=== PATIENT | female | born 1975 | race Caucasian/White ===

== ENCOUNTER 2016-07-10 20:21 | Emergency (ER) | payer BC ==
[2016-07-10] MEDS ORDERED: Promethazine HCl 25 MG/ML VIAL ONE (21:08)
[2016-07-10] MEDS ORDERED: diphenhydrAMINE HCl 25 MG CAP ONE (21:10)
== END 2016-07-10 22:05 | disposition home or self-care (01) ==
LOC: MADERS 20:21
DX: G43.909 Migraine, unspecified, not intractable, without status migrainosus (principal); G47.00 Insomnia, unspecified; F41.9 Anxiety disorder, unspecified; F32.9 Major depressive disorder, single episode, unspecified
CPT/HCPCS: 96372; J2270; J2550

== ENCOUNTER 2016-08-14 20:18 | Emergency (ER) | payer BC, SELFPAY ==
[~2016-08-14 20:18] MED LIST: Sodium Chloride 0.9% 1,000 ML BAG ONE
[2016-08-14] MEDS ORDERED: methylPREDNISolone Sod Succ/PF 125 MG/2 ML VIAL ONE (20:51)
[2016-08-14] MEDS ORDERED: diphenhydrAMINE HCl 50 MG/ML 1 ML VIAL ONE (20:51)
[2016-08-14] MEDS ORDERED: Metoclopramide HCl 10 MG/2 ML VIAL ONE (20:51)
[2016-08-14] MEDS ORDERED: Magnesium Sulfate 2 GM/NS 0.9% 50 ML BAG ONE (21:59)
[2016-08-14] MEDS ORDERED: Valproate Sodium 500 MG/5 ML VIAL ONE (22:38)
[2016-08-15] MEDS ORDERED: SODIUM CHLORIDE 0.9% IVPB SCH (01:00)
[2016-08-15] MEDS ORDERED: VALPROATE SODIUM IVPB SCH (01:00)
== END 2016-08-14 23:43 | disposition home or self-care (01) ==
LOC: MADERS 20:18
DX: G43.909 Migraine, unspecified, not intractable, without status migrainosus (principal); F41.9 Anxiety disorder, unspecified; F32.9 Major depressive disorder, single episode, unspecified; Z79.899 Other long term (current) drug therapy
CPT/HCPCS: 96361; 96365; 96367; 96375; J1200; J2765; J2930; J3475; J7050

== ENCOUNTER 2016-12-22 21:29 | Emergency (ER) | payer SELFPAY ==
[2016-12-22] MEDS ORDERED: Ondansetron HCl/PF 4 MG/2 ML Vial ONE (22:00)
[2016-12-22] MEDS ORDERED: Metoclopramide HCl 10 MG TAB ONE (22:00)
[2016-12-22] MEDS ORDERED: Metoclopramide HCl 10 MG/2 ML VIAL ONE ×2 (22:00→22:12)
[2016-12-22] MEDS ORDERED: diphenhydrAMINE HCl 50 MG/ML 1 ML VIAL ONE (22:00)
[2016-12-22] MEDS ORDERED: Ketorolac Tromethamine 30 MG/ML VIAL ONE (22:00)
[2016-12-22] MEDS ORDERED: HYDROcodone/Acetaminophen 10/325 mg Tablet ONE (22:54)
== END 2016-12-22 23:00 | disposition home or self-care (01) ==
LOC: MADERS 21:29
DX: G43.909 Migraine, unspecified, not intractable, without status migrainosus (principal); F41.0 Panic disorder [episodic paroxysmal anxiety]; F32.9 Major depressive disorder, single episode, unspecified
CPT/HCPCS: 96361; 96374; 96375; J1200; J1885; J2405; J2765; J7050

== ENCOUNTER 2017-01-20 18:16 | Emergency (ER) | payer SELFPAY ==
[2017-01-20] MEDS ORDERED: Naproxen 500 MG TAB ONE (19:34)
[2017-01-20] MEDS ORDERED: Diazepam 5 MG TAB ONE (19:34)
[2017-01-20] MEDS ORDERED: HYDROcodone/Acetaminophen 10/325 mg Tablet ONE (19:34)
== END 2017-01-20 19:42 | disposition home or self-care (01) ==
LOC: MADERS 18:16
DX: M54.5 Low back pain (principal); F32.9 Major depressive disorder, single episode, unspecified; F41.9 Anxiety disorder, unspecified
CPT/HCPCS: 99283

== ENCOUNTER 2017-03-04 18:19 | Emergency (ER) | payer SELFPAY ==
[2017-03-04] MEDS ORDERED: HYDROcodone/Acetaminophen 10/325 mg Tablet ONE (19:49)
[2017-03-04] MEDS ORDERED: Diazepam 5 MG TAB ONE (19:50)
[2017-03-04] MEDS ORDERED: Naproxen 500 MG TAB ONE (19:50)
[2017-03-04] MEDS ORDERED: Ondansetron ODT 4 MG TAB ONE (19:50)
--- NOTE | 2017-03-04 23:17 | CT ---
LUMBAR SPINE CT SCAN WITHOUT IV CONTRAST: 03/04/17 HISTORY: 41-year-old female with low back pain mostly right sided and right leg pain. Small right paracentral disc osteophyte at T11-T12 without significant canal stenosis, although ther e does appear to be minimal indention of the ventral thecal sac. Very minute disc osteophytic at T12 -L1. Minute disc osteophyte at L1-L2. Very mild bulging and ligament and facet hypertrophic changes at L2-L3 without significant central c anal or foraminal stenosis. At L3-L4, there is some mild disc bulging with very slight thinning of the lateral recesses without significant associated stenosis. At L4-L5, there is some diffuse disc bulging with moderate central canal and lateral recess stenosis and moderate to severe right foraminal stenosis. Unremarkable L5-S1. IMPRESSION: Disc bulging and ligament and facet hypertrophic changes resulting in central canal, right lateral r ecess, and right foraminal stenosis at L4-L5. Some minute multilevel disc osteophytic changes. At T11-T12, there is a focal right paracentral protrusion with mild indention of the right sided darling tral thecal sac. Followup nonemergent MRI study is suggested for more complete evaluation. POS: ADA
== END 2017-03-04 21:05 | disposition home or self-care (01) ==
LOC: MADERS 18:19
DX: M51.26 Other intervertebral disc displacement, lumbar region (principal); M54.41 Lumbago with sciatica, right side; F32.9 Major depressive disorder, single episode, unspecified; F41.0 Panic disorder [episodic paroxysmal anxiety]; Z79.891 Long term (current) use of opiate analgesic; Z79.899 Other long term (current) drug therapy
CPT/HCPCS: 72131; Q0162

== ENCOUNTER 2017-05-25 19:30 | Emergency (ER) | payer OTHER, SELFPAY ==
[2017-05-25] MEDS ORDERED: Ketorolac Tromethamine 30 MG/ML VIAL ONE (20:08)
[2017-05-25] MEDS ORDERED: Ondansetron ODT 4 MG TAB ONE (20:08)
[2017-05-25] MEDS ORDERED: HYDROcodone/Acetaminophen 10/325 mg Tablet ONE (20:08)
== END 2017-05-25 20:34 | disposition home or self-care (01) ==
LOC: MADERS 19:30
DX: M51.16 Intervertebral disc disorders with radiculopathy, lumbar region (principal); G47.00 Insomnia, unspecified; G43.909 Migraine, unspecified, not intractable, without status migrainosus; F41.0 Panic disorder [episodic paroxysmal anxiety]; Z79.899 Other long term (current) drug therapy
CPT/HCPCS: 96372; J1885; Q0162

== ENCOUNTER 2017-06-21 16:08 | Emergency (ER) | payer OTHER ==
[2017-06-21] MEDS ORDERED: Cephalexin 500 MG CAP ONE (18:26)
[2017-06-21] MEDS ORDERED: predniSONE 20 MG TAB ONE (18:26)
== END 2017-06-21 18:40 | disposition home or self-care (01) ==
LOC: MADERS 16:08
DX: S70.261A Insect bite (nonvenomous), right hip, initial encounter (principal); L03.319 Cellulitis of trunk, unspecified; G43.909 Migraine, unspecified, not intractable, without status migrainosus; G47.00 Insomnia, unspecified; F41.9 Anxiety disorder, unspecified; F32.9 Major depressive disorder, single episode, unspecified; Z79.899 Other long term (current) drug therapy; W57.XXXA Bitten or stung by nonvenomous insect and other nonvenomous arthropods, initial encounter
CPT/HCPCS: 99282; J7506

== ENCOUNTER 2017-09-23 12:10 | Emergency (ER) | payer OTHER ==
[2017-09-23] MEDS ORDERED: Cyclobenzaprine 10 MG TAB ONE (12:51)
[2017-09-23] MEDS ORDERED: Ketorolac Tromethamine 60 MG/2 ML VIAL ONE (12:51)
== END 2017-09-23 13:13 | disposition home or self-care (01) ==
LOC: MADERS 12:10
DX: G89.29 Other chronic pain (principal); M54.5 Low back pain; G47.00 Insomnia, unspecified; F41.9 Anxiety disorder, unspecified; F32.9 Major depressive disorder, single episode, unspecified; G43.909 Migraine, unspecified, not intractable, without status migrainosus; Z79.899 Other long term (current) drug therapy
CPT/HCPCS: 96372; J1885

== ENCOUNTER 2017-11-14 17:55 | Emergency (ER) | payer OTHER ==
[2017-11-14] MEDS ORDERED: Ketorolac Tromethamine 30 MG/ML VIAL ONE (18:17)
[2017-11-14] MEDS ORDERED: Metoclopramide HCl 10 MG/2 ML VIAL ONE (18:17)
[2017-11-14] MEDS ORDERED: diphenhydrAMINE 50 MG/ML VIAL ONE (18:17)
[2017-11-14] MEDS ORDERED: Acetaminophen 500 MG TAB ONE (19:19)
[2017-11-14] MEDS ORDERED: Magnesium Sulfate 2 GM/NS 0.9% 50 ML BAG ONE (19:19)
== END 2017-11-14 20:24 | disposition home or self-care (01) ==
LOC: MADERS 17:55
DX: G43.909 Migraine, unspecified, not intractable, without status migrainosus (principal); G89.29 Other chronic pain; M54.9 Dorsalgia, unspecified; F41.9 Anxiety disorder, unspecified; F32.9 Major depressive disorder, single episode, unspecified; Z79.899 Other long term (current) drug therapy
CPT/HCPCS: 96361; 96365; 96375; J1200; J1885; J2765; J3475; J7050

== ENCOUNTER 2018-01-13 18:03 | Emergency (ER) | payer OTHER ==
[~2018-01-13 18:03] MED LIST changes: -Sodium Chloride 0.9% 1,000 ML BAG ONE; +Sodium Chloride 0.9% 500 ML BAG ONE
[2018-01-13] MEDS ORDERED: Ketorolac Tromethamine 30 MG/ML VIAL ONE (18:32)
[2018-01-13] MEDS ORDERED: Metoclopramide HCl 10 MG TAB ONE (18:32)
[2018-01-13] MEDS ORDERED: Dexamethasone 10 MG/ML VIAL ONE (18:32)
[2018-01-13] MEDS ORDERED: Promethazine HCl 25 MG/ML VIAL ONE (18:32)
[2018-01-13] MEDS ORDERED: diphenhydrAMINE 50 MG/ML VIAL ONE (18:32)
[2018-01-13] MEDS ORDERED: Metoclopramide HCl 10 MG/2 ML VIAL ONE (18:32)
== END 2018-01-13 19:20 | disposition home or self-care (01) ==
LOC: MADERS 18:03
DX: G43.909 Migraine, unspecified, not intractable, without status migrainosus (principal); F41.9 Anxiety disorder, unspecified; F32.9 Major depressive disorder, single episode, unspecified; Z79.899 Other long term (current) drug therapy
CPT/HCPCS: 96365; 96375; J1100; J1200; J1885; J2550; J2765; J7050

== ENCOUNTER 2018-01-16 09:58 | Emergency (ER) | payer OTHER ==
--- NOTE | 2018-01-16 11:25 | RAD ---
LUMBAR SPINE THREE VIEWS: HISTORY: Trauma. Fell in the shower. Low back pain. FINDINGS: No fracture or subluxation is identified. Mild degenerative changes are present. POS: ADA
== END 2018-01-16 11:36 | disposition home or self-care (01) ==
LOC: MADERS 09:58
DX: M54.5 Low back pain (principal); G47.00 Insomnia, unspecified; F41.9 Anxiety disorder, unspecified; F32.9 Major depressive disorder, single episode, unspecified; Z79.899 Other long term (current) drug therapy
CPT/HCPCS: 72100

== ENCOUNTER 2018-02-12 23:35 | Emergency (ER) | payer OTHER ==
[~2018-02-12 23:35] MED LIST changes: +Sodium Chloride 0.9% 1,000 ML BAG ONE; -Sodium Chloride 0.9% 500 ML BAG ONE
[2018-02-13] MEDS ORDERED: SUMAtriptan Succinate 6 MG/0.5 ML VIAL ONE (00:01)
[2018-02-13] MEDS ORDERED: Promethazine HCl 25 MG/ML VIAL ONE (00:01)
[2018-02-13] MEDS ORDERED: Ketorolac Tromethamine 30 MG/ML VIAL ONE (00:01)
== END 2018-02-13 02:05 | disposition home or self-care (01) ==
LOC: MADERS 23:35
DX: G43.909 Migraine, unspecified, not intractable, without status migrainosus (principal); F41.9 Anxiety disorder, unspecified; F32.9 Major depressive disorder, single episode, unspecified; Z79.899 Other long term (current) drug therapy
CPT/HCPCS: 96361; 96372; 96374; 96375; J1885; J2550; J3030; J7050

== ENCOUNTER 2018-02-14 13:17 | Emergency (ER) | payer OTHER ==
[2018-02-14] MEDS ORDERED: diphenhydrAMINE 50 MG/ML VIAL ONE (13:55)
[2018-02-14] MEDS ORDERED: Metoclopramide HCl 10 MG/2 ML VIAL ONE (13:55)
[2018-02-14] MEDS ORDERED: Ketorolac Tromethamine 30 MG/ML VIAL ONE (13:55)
[2018-02-14 14:37] LABS: #Basophils 0.1 thou/uL (0.0-0.2); #Eosinphils 0.2 thou/uL (0.0-0.7); #Monocytes 0.8 thou/uL (0.11-0.59); #Neutrophils 8.7 thou/uL (1.40-6.50); %Basophils 0.8 % (0.0-1.0); %Eosinophils 1.8 % (0.0-10.0); %Lymphocytes 16.7 % (21.0-51.0); %Monocytes 6.4 % (0.0-10.0); %Neutrophils 74.3 % (42.0-75.0); Hemoglobin 13.1 g/dL (12.0-16.0); Mean Corpuscular HGB CONC 33.8 g/dL (32.0-36.0); Mean Corpuscular Hemoglobin 31.7 pg (27.0-31.0); Mean Corpuscular Volume 93.7 fL (78.0-98.0); Mean Platelet Volume 8.1 fL (7.4-10.4); Platelet Count 282 thou/uL (130-400); RBC Distribution Width 12.5 % (11.5-14.5); Red Blood Cell (RBC) Count 4.14 mill/uL (4.20-5.40); White Blood Cell (WBC) Count 11.7 thou/uL (4.8-10.8)
[2018-02-14 14:45] LABS: Prothrombin Time 12.8 SEC (12.0-14.7)
[2018-02-14 14:51] LABS: ALT (SGPT) 31 U/L (8-55); AST (SGOT) 20 U/L (5-34); Albumin 4.2 g/dL (3.5-5.0); Alkaline Phosphatase 83 U/L (40-150); Anion Gap 14 mmol/L (10-20); BUN (Urea Nitrogen) 5 mg/dL (7.0-18.7); Bilirubin, Total 0.8 mg/dL (0.2-1.2); Calc. Creatinine Clearance 0 mL/min (70-130); Calcium 8.8 mg/dL (7.8-10.44); Carbon Dioxide 23 mmol/L (22-29); Chloride 108 mmol/L (98-107); Estimated GFR-MDRD 82; Glucose 108 mg/dL (70-105); Potassium 3.5 mmol/L (3.5-5.1); Protein, Total 7.2 g/dL (6.0-8.3); Sodium 141 mmol/L (136-145)
[2018-02-14] MEDS ORDERED: SUMAtriptan Succinate 6 MG/0.5 ML VIAL ONE (15:01)
== END 2018-02-14 15:34 | disposition home or self-care (01) ==
LOC: MADERS 13:17
DX: G43.909 Migraine, unspecified, not intractable, without status migrainosus (principal); G47.00 Insomnia, unspecified; F32.9 Major depressive disorder, single episode, unspecified; F41.0 Panic disorder [episodic paroxysmal anxiety]; Z79.891 Long term (current) use of opiate analgesic; Z79.899 Other long term (current) drug therapy
CPT/HCPCS: 36415; 80053; 85025; 85610; 96372; 96374; 96375; J1200; J1885; J2765; J3030

== ENCOUNTER 2018-02-17 18:10 | Emergency (ER) | payer OTHER ==
[2018-02-17] MEDS ORDERED: Prochlorperazine 10 MG/2 ML VIAL ONE (18:39)
[2018-02-17] MEDS ORDERED: Haloperidol Lactate 5 MG/ML VIAL ONE (18:39)
[2018-02-17 19:05] LABS: #Basophils 0.1 thou/uL (0.0-0.2); #Eosinphils 0.2 thou/uL (0.0-0.7); #Lymphocytes 2.4 thou/uL (1.20-3.40); #Monocytes 0.9 thou/uL (0.11-0.59); #Neutrophils 8.8 thou/uL (1.40-6.50); %Basophils 0.6 % (0.0-1.0); %Eosinophils 1.8 % (0.0-10.0); %Lymphocytes 19.5 % (21.0-51.0); %Monocytes 6.9 % (0.0-10.0); %Neutrophils 71.2 % (42.0-75.0); Hemoglobin 12.1 g/dL (12.0-16.0); Mean Corpuscular HGB CONC 33.4 g/dL (32.0-36.0); Mean Corpuscular Hemoglobin 31.1 pg (27.0-31.0); Mean Platelet Volume 9.1 fL (7.4-10.4); Platelet Count 263 thou/uL (130-400); RBC Distribution Width 12.5 % (11.5-14.5); White Blood Cell (WBC) Count 12.3 thou/uL (4.8-10.8)
[2018-02-17 19:12] LABS: INR-International Normal Ratio 0.9; Prothrombin Time 12.1 SEC (12.0-14.7)
[2018-02-17 19:20] LABS: ALT (SGPT) 24 U/L (8-55); AST (SGOT) 18 U/L (5-34); Albumin 4.5 g/dL (3.5-5.0); Alkaline Phosphatase 84 U/L (40-150); Anion Gap 12 mmol/L (10-20); BUN (Urea Nitrogen) 9 mg/dL (7.0-18.7); Bilirubin, Total 0.6 mg/dL (0.2-1.2); Calc. Creatinine Clearance 0 mL/min (70-130); Calcium 9.4 mg/dL (7.8-10.44); Carbon Dioxide 25 mmol/L (22-29); Chloride 108 mmol/L (98-107); Estimated GFR-MDRD 66; Globulin 3.1 g/dL (2.4-3.5); Glucose 94 mg/dL (70-105); Potassium 3.9 mmol/L (3.5-5.1); Protein, Total 7.6 g/dL (6.0-8.3); Sodium 141 mmol/L (136-145)
--- NOTE | 2018-02-17 20:12 | CT ---
CT BRAIN 02/17/18 HISTORY: 42-year-old with five day history of headache. Noncontrast enhanced CT images of the brain is obtained from base of the skull through the vertex. Br ain and bone windows obtained. The calvarium is unremarkable. No evidence of acute intracranial masses, hemorrhages, strokes or cont usions seen. Ventricles are of normal size. IMPRESSION: Normal CT brain. POS: BATSHEVA
== END 2018-02-17 20:09 | disposition home or self-care (01) ==
LOC: MADERS 18:10
DX: G43.909 Migraine, unspecified, not intractable, without status migrainosus (principal); F32.9 Major depressive disorder, single episode, unspecified; F41.0 Panic disorder [episodic paroxysmal anxiety]; G47.00 Insomnia, unspecified; Z79.899 Other long term (current) drug therapy
CPT/HCPCS: 70450; 80053; 85025; 85610; 96374; 96375; J0780; J1630

== ENCOUNTER 2018-02-26 08:37 | Emergency (ER) | payer OTHER ==
[2018-02-26] MEDS ORDERED: Ibuprofen 800 MG TAB ONE (08:53)
--- NOTE | 2018-02-26 09:29 | RAD ---
LEFT FOOT THREE VIEWS: History: Fall with foot pain. FINDINGS: There is a Taylor type fracture of the base of the fifth metatarsal. No other findings. IMPRESSION: Taylor fracture base of fifth metatarsal. POS: ADA
== END 2018-02-26 09:20 | disposition home or self-care (01) ==
LOC: MADERS 08:37
DX: S92.355A Nondisplaced fracture of fifth metatarsal bone, left foot, initial encounter for closed fracture (principal); G47.00 Insomnia, unspecified; G43.909 Migraine, unspecified, not intractable, without status migrainosus; F41.9 Anxiety disorder, unspecified; F32.9 Major depressive disorder, single episode, unspecified; Z79.899 Other long term (current) drug therapy; W01.0XXA Fall on same level from slipping, tripping and stumbling without subsequent striking against object, initial encounter
CPT/HCPCS: 29515

== ENCOUNTER 2018-02-26 23:28 | Emergency (ER) | payer OTHER ==
[2018-02-27] MEDS ORDERED: traMADol HCl 50 MG TAB ONE (00:01)
== END 2018-02-27 00:08 | disposition home or self-care (01) ==
LOC: MADERS 23:28
DX: S92.352A Displaced fracture of fifth metatarsal bone, left foot, initial encounter for closed fracture (principal); G47.00 Insomnia, unspecified; G43.909 Migraine, unspecified, not intractable, without status migrainosus; F31.9 Bipolar disorder, unspecified; F41.0 Panic disorder [episodic paroxysmal anxiety]
CPT/HCPCS: 99283

== ENCOUNTER 2018-05-01 05:23 | Emergency (ER) | payer OTHER ==
[2018-05-01] MEDS ORDERED: Lorazepam 1 MG TAB ONE (06:25)
== END 2018-05-01 06:28 | disposition home or self-care (01) ==
LOC: MADERS 05:23
DX: F41.1 Generalized anxiety disorder (principal); G43.909 Migraine, unspecified, not intractable, without status migrainosus; G47.00 Insomnia, unspecified; F32.9 Major depressive disorder, single episode, unspecified; E78.5 Hyperlipidemia, unspecified
CPT/HCPCS: 93005

== ENCOUNTER 2018-08-12 08:42 | Emergency (ER) | payer OTHER ==
[2018-08-12] MEDS ORDERED: Ibuprofen 800 MG TAB ONE (09:27)
== END 2018-08-12 10:00 | disposition home or self-care (01) ==
LOC: MADERS 08:42
DX: B34.9 Viral infection, unspecified (principal); G47.00 Insomnia, unspecified; G43.909 Migraine, unspecified, not intractable, without status migrainosus; F41.9 Anxiety disorder, unspecified; F32.9 Major depressive disorder, single episode, unspecified; Z79.899 Other long term (current) drug therapy
CPT/HCPCS: 87081; 87430; 87804; 99283

== ENCOUNTER 2018-08-14 12:12 | Emergency (ER) | payer OTHER ==
[2018-08-14] MEDS ORDERED: Oseltamivir 75 MG CAP ONE (13:59)
--- NOTE | 2018-08-14 14:18 | RAD ---
PA AND LATERAL CHEST: Date: 08/14/18 HISTORY: Cough and congestion. FINDINGS: Heart size is borderline to minimally enlarged. Mediastinal structures are unremarkable. The lungs ar e clear of infiltrates. There are no signs of failure. IMPRESSION: Borderline heart size. POS: TPC
== END 2018-08-14 14:35 | disposition home or self-care (01) ==
LOC: MADERS 12:12
DX: J11.1 Influenza due to unidentified influenza virus with other respiratory manifestations (principal); G47.00 Insomnia, unspecified; G43.909 Migraine, unspecified, not intractable, without status migrainosus; F41.0 Panic disorder [episodic paroxysmal anxiety]; F32.9 Major depressive disorder, single episode, unspecified; Z79.899 Other long term (current) drug therapy
CPT/HCPCS: 71046; 87081; 87430

== ENCOUNTER 2018-11-12 17:25 | Emergency (ER) | payer OTHER ==
[2018-11-12] MEDS ORDERED: diphenhydrAMINE 50 MG/ML VIAL ONE (18:08)
[2018-11-12] MEDS ORDERED: Sodium Chloride 0.9% 1,000 ML ONE (18:08)
[2018-11-12] MEDS ORDERED: Ketorolac Tromethamine 30 MG/ML VIAL ONE (18:08)
[2018-11-12] MEDS ORDERED: Acetaminophen 500 MG TAB ONE (18:08)
[2018-11-12] MEDS ORDERED: Promethazine HCl 25 MG/ML VIAL ONE (18:08)
== END 2018-11-12 19:20 | disposition home or self-care (01) ==
LOC: MADERS 17:25
DX: G43.909 Migraine, unspecified, not intractable, without status migrainosus (principal); G47.00 Insomnia, unspecified; F41.9 Anxiety disorder, unspecified; F32.9 Major depressive disorder, single episode, unspecified; Z79.899 Other long term (current) drug therapy
CPT/HCPCS: 96361; 96374; 96375; J1200; J1885; J2550; J7050

== ENCOUNTER 2018-11-18 09:36 | Emergency (ER) | payer OTHER ==
--- NOTE | 2018-11-18 10:51 | RAD ---
RADIOGRAPH LEFT FOOT 3 VIES: DATE: 11/18/2018. HISTORY: A 43-year-old female with posttraumatic foot pain. FINDINGS: No evidence of fracture. No dislocation. The joints appear normal. No osseous abnormality visualiz ed. IMPRESSION: Negative. POS: TPC
== END 2018-11-18 10:23 | disposition home or self-care (01) ==
LOC: MADERS 09:36
DX: S93.602A Unspecified sprain of left foot, initial encounter (principal); G43.909 Migraine, unspecified, not intractable, without status migrainosus; G47.00 Insomnia, unspecified; F32.9 Major depressive disorder, single episode, unspecified; F41.9 Anxiety disorder, unspecified; Z79.899 Other long term (current) drug therapy; W18.30XA Fall on same level, unspecified, initial encounter

== ENCOUNTER 2018-12-04 19:42 | Emergency (ER) | payer OTHER ==
[2018-12-04] MEDS ORDERED: methylPREDNISolone Sod Succ/PF 125 MG/2 ML VIAL ONE (20:06)
[2018-12-04] MEDS ORDERED: Promethazine HCl 25 MG/ML VIAL ONE ×2 (20:06→21:27)
[2018-12-04] MEDS ORDERED: Sodium Chloride 0.9% 100 ML ONE ×2 (20:06→21:27)
[2018-12-04] MEDS ORDERED: diphenhydrAMINE 50 MG/ML VIAL ONE (20:06)
[2018-12-04] MEDS ORDERED: Sodium Chloride 0.9% 1,000 ML ONE (20:06)
[2018-12-04] MEDS ORDERED: Sterile Water 10 ML ONE (20:06)
[2018-12-04] MEDS ORDERED: Acetaminophen 500 MG TAB ONE (21:25)
== END 2018-12-04 22:15 | disposition home or self-care (01) ==
LOC: MADERS 19:42
DX: G43.909 Migraine, unspecified, not intractable, without status migrainosus (principal); G47.00 Insomnia, unspecified; F32.9 Major depressive disorder, single episode, unspecified; F41.0 Panic disorder [episodic paroxysmal anxiety]; Z79.899 Other long term (current) drug therapy
CPT/HCPCS: 96361; 96365; 96375; 96376; A4216; J1200; J2550; J2930; J3490; J7050

== ENCOUNTER 2018-12-25 13:59 | Emergency (ER) | payer OTHER ==
[2018-12-25] MEDS ORDERED: Dexamethasone 10 MG/ML VIAL ONE (15:01)
[2018-12-25] MEDS ORDERED: Ketorolac Tromethamine 60 MG/2 ML VIAL ONE (15:01)
[2018-12-25] MEDS ORDERED: Promethazine HCl 25 MG/ML VIAL ONE (15:01)
[2018-12-25] MEDS ORDERED: diphenhydrAMINE 50 MG/ML VIAL ONE (15:01)
[2018-12-25] MEDS ORDERED: Sodium Chloride 0.9% 1,000 ML ONE (15:01)
== END 2018-12-25 16:30 | disposition home or self-care (01) ==
LOC: MADERS 13:59
DX: S39.82XA Other specified injuries of lower back, initial encounter (principal); G43.909 Migraine, unspecified, not intractable, without status migrainosus; G47.00 Insomnia, unspecified; F41.9 Anxiety disorder, unspecified; F32.9 Major depressive disorder, single episode, unspecified; Z79.899 Other long term (current) drug therapy; X50.0XXA Overexertion from strenuous movement or load, initial encounter
CPT/HCPCS: 96365; 96375; J1100; J1200; J1885; J2550; J7050

== ENCOUNTER 2019-01-05 15:00 | Emergency (ER) | payer OTHER ==
[2019-01-05] MEDS ORDERED: Metoclopramide HCl 10 MG TAB ONE (15:40)
[2019-01-05] MEDS ORDERED: Magnesium 2 GM/50 ML BAG (IN WATER) ONE (15:40)
[2019-01-05] MEDS ORDERED: Ketorolac Tromethamine 30 MG/ML VIAL ONE (15:40)
== END 2019-01-05 16:39 | disposition home or self-care (01) ==
LOC: MADERS 15:00
DX: G43.009 Migraine without aura, not intractable, without status migrainosus (principal); F32.9 Major depressive disorder, single episode, unspecified; F41.0 Panic disorder [episodic paroxysmal anxiety]; Z79.899 Other long term (current) drug therapy
CPT/HCPCS: 96365; 96375; J1885; J3475; J8597

== ENCOUNTER 2019-03-10 07:41 | Emergency (ER) | payer OTHER, SELFPAY ==
--- NOTE | 2019-03-10 08:34 | RAD ---
LEFT SHOULDER 3 VIEWS: HISTORY: Fall, left shoulder pain. FINDINGS/IMPRESSION: No acute fracture or dislocation is identified. POS: BATSHEVA
== END 2019-03-10 08:44 | disposition home or self-care (01) ==
LOC: MADERS 07:41
DX: S46.912A Strain of unspecified muscle, fascia and tendon at shoulder and upper arm level, left arm, initial encounter (principal); G47.00 Insomnia, unspecified; G43.909 Migraine, unspecified, not intractable, without status migrainosus; W18.30XA Fall on same level, unspecified, initial encounter

== ENCOUNTER 2019-03-19 15:56 | Emergency (ER) | payer SELFPAY ==
[2019-03-19] MEDS ORDERED: Promethazine HCl 25 MG/ML VIAL ONE (16:17)
[2019-03-19] MEDS ORDERED: Sodium Chloride 0.9% 1,000 ML ONE (16:17)
[2019-03-19] MEDS ORDERED: methylPREDNISolone Sod Succ/PF 125 MG/2 ML VIAL ONE (16:17)
[2019-03-19] MEDS ORDERED: diphenhydrAMINE 50 MG/ML VIAL ONE (16:17)
[2019-03-19] MEDS ORDERED: Ketorolac Tromethamine 30 MG/ML VIAL ONE (16:17)
== END 2019-03-19 17:40 | disposition home or self-care (01) ==
LOC: MADERS 15:56
DX: G43.909 Migraine, unspecified, not intractable, without status migrainosus (principal); G47.00 Insomnia, unspecified; F41.9 Anxiety disorder, unspecified; F32.9 Major depressive disorder, single episode, unspecified
CPT/HCPCS: 96365; 96375; J1200; J1885; J2550; J2930; J7050

== ENCOUNTER 2019-03-22 18:17 | Emergency (ER) | payer SELFPAY ==
[2019-03-22] MEDS ORDERED: Ketorolac Tromethamine 30 MG/ML VIAL ONE (18:48)
[2019-03-22] MEDS ORDERED: Sodium Chloride 0.9% 1,000 ML ONE (18:48)
[2019-03-22] MEDS ORDERED: Prochlorperazine 10 MG/2 ML VIAL ONE (18:48)
[2019-03-22] MEDS ORDERED: diphenhydrAMINE 50 MG/ML VIAL ONE (18:48)
[2019-03-22] MEDS ORDERED: Dexamethasone 10 MG/ML VIAL ONE (18:48)
[2019-03-22] MEDS ORDERED: Ketorolac Tromethamine 60 MG/2 ML VIAL ONE (19:44)
== END 2019-03-22 20:15 | disposition home or self-care (01) ==
LOC: MADERS 18:17
DX: G43.909 Migraine, unspecified, not intractable, without status migrainosus (principal); G47.00 Insomnia, unspecified; F32.9 Major depressive disorder, single episode, unspecified; F41.0 Panic disorder [episodic paroxysmal anxiety]
CPT/HCPCS: 96372; 99283; J0780; J1100; J1200; J1885; J7050

== ENCOUNTER 2019-07-18 14:37 | Emergency (ER) | payer BC, SELFPAY ==
[2019-07-18] MEDS ORDERED: Ketorolac Tromethamine 30 MG/ML VIAL ONE (15:31)
[2019-07-18] MEDS ORDERED: diphenhydrAMINE 50 MG/ML VIAL ONE (15:31)
[2019-07-18] MEDS ORDERED: Sodium Chloride 0.9% 1,000 ML ONE ×2 (15:31→17:06)
[2019-07-18] MEDS ORDERED: Prochlorperazine 10 MG/2 ML VIAL ONE (15:31)
[2019-07-18] MEDS ORDERED: Dexamethasone 10 MG/ML VIAL ONE (17:06)
[2019-07-18] MEDS ORDERED: Acetaminophen 500 MG TAB ONE (17:06)
== END 2019-07-18 17:45 | disposition home or self-care (01) ==
LOC: MADERS 14:37
DX: G43.909 Migraine, unspecified, not intractable, without status migrainosus (principal); G89.29 Other chronic pain; F41.9 Anxiety disorder, unspecified; F32.9 Major depressive disorder, single episode, unspecified; Z79.899 Other long term (current) drug therapy
CPT/HCPCS: 96365; 96375; J0780; J1100; J1200; J1885; J7050

== ENCOUNTER 2019-07-22 17:03 | Emergency (ER) | payer BC | END 2019-07-22 18:35 | disposition home or self-care (01) | LOC: MADERS 17:03 | DX: J06.9 Acute upper respiratory infection, unspecified (principal); G43.909 Migraine, unspecified, not intractable, without status migrainosus; G47.00 Insomnia, unspecified; F41.9 Anxiety disorder, unspecified; F32.9 Major depressive disorder, single episode, unspecified; F41.0 Panic disorder [episodic paroxysmal anxiety]; Z79.899 Other long term (current) drug therapy | CPT/HCPCS: 87081; 87430; 87804; 99283 ==

== ENCOUNTER 2019-11-16 19:51 | Emergency (ER) | payer BC, SELFPAY ==
[2019-11-16] MEDS ORDERED: Metoclopramide HCl 10 MG/2 ML VIAL ONE (20:55)
[2019-11-16] MEDS ORDERED: diphenhydrAMINE 50 MG/ML VIAL ONE (20:55)
[2019-11-16] MEDS ORDERED: Ketorolac Tromethamine 30 MG/ML VIAL ONE (20:55)
== END 2019-11-16 22:23 | disposition home or self-care (01) ==
LOC: MADERS 19:51
DX: G43.909 Migraine, unspecified, not intractable, without status migrainosus (principal); F32.9 Major depressive disorder, single episode, unspecified; F41.0 Panic disorder [episodic paroxysmal anxiety]; Z79.899 Other long term (current) drug therapy
CPT/HCPCS: 96374; 96375; J1200; J1885; J2765

== ENCOUNTER 2019-11-29 14:53 | Emergency (ER) | payer SELFPAY ==
[2019-11-29] MEDS ORDERED: diphenhydrAMINE 50 MG/ML VIAL ONE (15:17)
[2019-11-29] MEDS ORDERED: Prochlorperazine 10 MG/2 ML VIAL ONE (15:17)
[2019-11-29] MEDS ORDERED: Ketorolac Tromethamine 60 MG/2 ML VIAL ONE (15:17)
== END 2019-11-29 15:30 | disposition home or self-care (01) ==
LOC: MADERS 14:53
DX: G43.909 Migraine, unspecified, not intractable, without status migrainosus (principal); G47.00 Insomnia, unspecified; F41.9 Anxiety disorder, unspecified; F32.9 Major depressive disorder, single episode, unspecified; F41.0 Panic disorder [episodic paroxysmal anxiety]; Z79.899 Other long term (current) drug therapy
CPT/HCPCS: 96372; 99283; J0780; J1200; J1885

== ENCOUNTER 2020-03-31 14:44 | Emergency (ER) | payer SELFPAY ==
[2020-03-31] MEDS ORDERED: predniSONE 20 MG TAB ONE (15:40)
== END 2020-03-31 15:46 | disposition home or self-care (01) ==
LOC: MADERS 14:44
DX: M54.41 Lumbago with sciatica, right side (principal); F41.9 Anxiety disorder, unspecified; F32.9 Major depressive disorder, single episode, unspecified; Z79.899 Other long term (current) drug therapy; X50.0XXA Overexertion from strenuous movement or load, initial encounter
CPT/HCPCS: 99283; J7512

== ENCOUNTER 2020-06-23 18:28 | Emergency (ER) | payer SELFPAY ==
[~2020-06-23 18:28] MED LIST changes: +Iopamidol 370 76% 125 ML VIAL FS ONE; -Sodium Chloride 0.9% 1,000 ML BAG ONE
[2020-06-23 19:13] LABS: #Eosinphils 0.1 thou/uL (0.0-0.7); #Lymphocytes 2.5 thou/uL (1.20-3.40); #Monocytes 0.7 thou/uL (0.11-0.59); #Neutrophils 8.2 thou/uL (1.40-6.50); %Basophils 0.3 % (0.0-1.0); %Eosinophils 0.9 % (0.0-10.0); %Lymphocytes 21.4 % (21.0-51.0); %Monocytes 5.9 % (0.0-10.0); %Neutrophils 71.5 % (42.0-75.0); Hemoglobin 14.7 g/dL (12.0-16.0); Mean Corpuscular HGB CONC 32.8 g/dL (32.0-36.0); Mean Corpuscular Hemoglobin 30.1 pg (27.0-31.0); Mean Corpuscular Volume 91.8 fL (78.0-98.0); Mean Platelet Volume 9.2 fL (7.4-10.4); Platelet Count 202 thou/uL (130-400); RBC Distribution Width 12.2 % (11.5-14.5); Red Blood Cell (RBC) Count 4.88 mill/uL (4.20-5.40); White Blood Cell (WBC) Count 11.4 thou/uL (4.8-10.8)
--- NOTE | 2020-06-23 19:17 | RAD ---
Chest 2 views HISTORY: Chest pain. COMPARISON: 08/14/2018. FINDINGS: Cardiac silhouette and pulmonary vasculature are unremarkable. Mediastinum is midline. No confluent airspace consolidation, pneumothorax, or pleural fluid. IMPRESSION : No abnormalities are demonstrated
[2020-06-23 19:28] LABS: ALT (SGPT) 12 U/L (8-55); AST (SGOT) 16 U/L (5-34); Albumin 4.5 g/dL (3.5-5.0); Alkaline Phosphatase 78 U/L (40-110); Anion Gap 16 mmol/L (10-20); BUN (Urea Nitrogen) 7 mg/dL (7.0-18.7); Bilirubin, Total 0.7 mg/dL (0.2-1.2); Calc. Creatinine Clearance 0 mL/min (70-130); Calcium 9.1 mg/dL (7.8-10.44); Carbon Dioxide 21 mmol/L (22-29); Chloride 106 mmol/L (98-107); Globulin 3.3 g/dL (2.4-3.5); Glucose 89 mg/dL (70-105); Lipase 22 U/L (8-78); Potassium 3.2 mmol/L (3.5-5.1); Protein, Total 7.8 g/dL (6.0-8.3); Sodium 140 mmol/L (136-145)
[2020-06-23] MEDS ORDERED: Aspirin 325 MG TAB ONE (19:35)
[2020-06-23] MEDS ORDERED: Pantoprazole 40 MG VIAL ONE (19:35)
[2020-06-23] MEDS ORDERED: Mag-Al Plus 1200 MG/1200 MG/120 MG/30 ML UDCUP ONE (19:35)
[2020-06-23] MEDS ORDERED: Sodium Chloride 0.9% 1,000 ML ONE (19:35)
[2020-06-23] MEDS ORDERED: Lidocaine Viscous Sol 2% 15 ml UD Cup ONE (19:35)
--- NOTE | 2020-06-23 20:27 | CT ---
CT arteriogram chest with IV contrast and 3-D imaging HISTORY: Chest pain. Elevated d-dimer. FINDINGS: There is good contrast opacification pulmonary arteries and thoracic aorta with normal bran mehul of the great vessels at the aortic arch. No pleural fluid, consolidation, pneumothorax, or mediastinal adenopathy. IMPRESSION : No abnormalities are demonstrated.
[2020-06-23] MEDS ORDERED: Potassium Chloride 20 MEQ TAB ONE (22:16)
== END 2020-06-23 22:22 | disposition home or self-care (01) ==
LOC: MADERS 18:28
DX: R07.9 Chest pain, unspecified (principal); M79.89 Other specified soft tissue disorders; E78.5 Hyperlipidemia, unspecified; G43.909 Migraine, unspecified, not intractable, without status migrainosus; I25.2 Old myocardial infarction; Z79.899 Other long term (current) drug therapy
CPT/HCPCS: 71046; 71275; 80053; 83690; 84443; 84484; 85025; 85379; 93005; 96374; C9113; J7050; Q9967

== ENCOUNTER 2020-10-27 10:09 | Emergency (ER) | payer SELFPAY ==
[2020-10-27] MEDS ORDERED: diphenhydrAMINE 50 MG/ML VIAL ONE (10:42)
[2020-10-27] MEDS ORDERED: Ketorolac Tromethamine 30 MG/ML VIAL ONE (10:42)
[2020-10-27] MEDS ORDERED: Sodium Chloride 0.9% 1,000 ML ONE (10:42)
[2020-10-27] MEDS ORDERED: Sodium Chloride 0.9% 0 ML ONE ×2 (10:42→10:43)
[2020-10-27] MEDS ORDERED: Metoclopramide HCl 10 MG/2 ML VIAL ONE (10:42)
[2020-10-27] MEDS ORDERED: Sodium Chloride 0.9% 50 ML ONE (10:44)
== END 2020-10-27 11:35 | disposition home or self-care (01) ==
LOC: MADERS 10:09
DX: G43.909 Migraine, unspecified, not intractable, without status migrainosus (principal); Z79.899 Other long term (current) drug therapy
CPT/HCPCS: 96365; 96375; J1200; J1885; J2765; J3490; J7050

== ENCOUNTER 2021-01-23 12:36 | Emergency (ER) | payer SELFPAY ==
[2021-01-23] MEDS ORDERED: Ketorolac Tromethamine 30 MG/ML VIAL ONE (15:48)
[2021-01-23] MEDS ORDERED: Ondansetron ODT 4 MG TAB ONE (15:48)
== END 2021-01-23 16:00 | disposition home or self-care (01) ==
LOC: MADERS 12:36
DX: S20.221A Contusion of right back wall of thorax, initial encounter (principal); M51.26 Other intervertebral disc displacement, lumbar region; G43.909 Migraine, unspecified, not intractable, without status migrainosus; G47.00 Insomnia, unspecified; W18.2XXA Fall in (into) shower or empty bathtub, initial encounter; Y93.E1 Activity, personal bathing and showering; Y92.002 Bathroom of unspecified non-institutional (private) residence as the place of occurrence of the external cause
CPT/HCPCS: 72072; 96372; J1885; Q0162

== ENCOUNTER 2021-03-01 14:08 | Emergency (ER) | payer SELFPAY ==
[2021-03-01] MEDS ORDERED: Ketorolac Tromethamine 30 MG/ML VIAL ONE (16:08)
[2021-03-01] MEDS ORDERED: Lactated Ringer's 1,000 ML ONE (16:08)
[2021-03-01] MEDS ORDERED: Metoclopramide HCl 10 MG TAB ONE (16:08)
[2021-03-01] MEDS ORDERED: Metoclopramide HCl 10 MG/2 ML VIAL ONE (16:09)
== END 2021-03-01 17:30 | disposition home or self-care (01) ==
LOC: MADERS 14:08
DX: G43.909 Migraine, unspecified, not intractable, without status migrainosus (principal); G47.00 Insomnia, unspecified
CPT/HCPCS: 96374; 96375; J1885; J2765; J7120

== ENCOUNTER 2021-03-10 15:27 | Emergency (ER) | payer SELFPAY ==
[2021-03-10] MEDS ORDERED: Ketorolac Tromethamine 30 MG/ML VIAL ONE (16:11)
[2021-03-10] MEDS ORDERED: Ondansetron ODT 4 MG TAB ONE (16:11)
== END 2021-03-10 17:15 | disposition home or self-care (01) ==
LOC: MADERS 15:27
DX: G43.919 Migraine, unspecified, intractable, without status migrainosus (principal); G47.30 Sleep apnea, unspecified; Z79.899 Other long term (current) drug therapy
CPT/HCPCS: 96372; 99283; J1885; Q0162

== ENCOUNTER 2021-05-08 12:35 | Emergency (ER) | payer SELFPAY ==
[2021-05-08] MEDS ORDERED: Metoclopramide HCl 10 MG/2 ML VIAL ONE (13:46)
[2021-05-08] MEDS ORDERED: diphenhydrAMINE 50 MG/ML VIAL ONE (13:46)
[2021-05-08] MEDS ORDERED: Sodium Chloride 0.9% 1,000 ML ONE (13:46)
[2021-05-08] MEDS ORDERED: Ketorolac Tromethamine 30 MG/ML VIAL ONE (13:46)
[2021-05-08] MEDS ORDERED: Sodium Chloride 0.9% 100 ML ONE (14:11)
== END 2021-05-08 15:16 | disposition home or self-care (01) ==
LOC: MADERS 12:35
DX: G43.909 Migraine, unspecified, not intractable, without status migrainosus (principal); G47.00 Insomnia, unspecified
CPT/HCPCS: 96365; 96375; J1200; J1885; J2765; J3490; J7050

== ENCOUNTER 2021-07-20 06:35 | Emergency (ER) | payer SELFPAY ==
[2021-07-20] MEDS ORDERED: HYDROcodone/Acetaminophen 5/325 mg Tablet ONE (07:26)
[2021-07-20] MEDS ORDERED: Dexamethasone 4 MG TAB ONE (07:27)
[2021-07-20] MEDS ORDERED: Ketorolac Tromethamine 60 MG/2 ML VIAL ONE (07:27)
[2021-07-20] MEDS ORDERED: Cyclobenzaprine 10 MG TAB ONE (07:27)
[2021-07-20] MEDS ORDERED: Gabapentin 100 MG CAP ONE (07:27)
== END 2021-07-20 07:50 | disposition home or self-care (01) ==
LOC: MADERS 06:35
DX: M54.41 Lumbago with sciatica, right side (principal); Z79.899 Other long term (current) drug therapy
CPT/HCPCS: 96372; 99283; J1885; J8540

== ENCOUNTER 2022-01-03 18:40 | Emergency (ER) | payer SELFPAY ==
[2022-01-03] MEDS ORDERED: Ketorolac Tromethamine 30 MG/ML VIAL ONE (20:15)
[2022-01-03] MEDS ORDERED: Prochlorperazine 10 MG/2 ML VIAL ONE (20:15)
== END 2022-01-03 21:55 | disposition home or self-care (01) ==
LOC: MADERS 18:40
DX: G43.909 Migraine, unspecified, not intractable, without status migrainosus (principal); Z79.899 Other long term (current) drug therapy
CPT/HCPCS: 94760; 96374; 96375; J0780; J1885

== ENCOUNTER 2025-04-26 23:14 | Emergency (ER) | payer OTHER, SELFPAY ==
[2025-04-26] MEDS ORDERED: Ketorolac Tromethamine 30 MG (1 mL) VIAL ONE (23:53)
[2025-04-26] MEDS ORDERED: Prochlorperazine 10 MG/2 ML VIAL ONE (23:53)
== END 2025-04-27 00:57 | disposition home or self-care (01) ==
LOC: MADERS 23:14
DX: G43.909 Migraine, unspecified, not intractable, without status migrainosus (principal); E11.9 Type 2 diabetes mellitus without complications; Z79.84 Long term (current) use of oral hypoglycemic drugs; Z79.4 Long term (current) use of insulin; Z79.899 Other long term (current) drug therapy
CPT/HCPCS: 96374; 96375; J0780; J1885; J2919; J7120